=== PATIENT | male | born 1950 | race Caucasian/White ===

== ENCOUNTER 2023-01-07 13:43 | Emergency (ER) | payer OTHER, MEDICARE ==
[2023-01-07] MEDS ORDERED: Ketorolac 30 MG/ML SDV IM ONE (14:15)
[2023-01-07] MEDS ORDERED: Baclofen 10 MG Tab PO ONE (14:15)
== END 2023-01-07 16:17 | disposition home or self-care (01) ==
LOC: JP.ED 13:43
DX: M51.16 Intervertebral disc disorders with radiculopathy, lumbar region (principal); Z88.0 Allergy status to penicillin; Z79.899 Other long term (current) drug therapy; X50.0XXA Overexertion from strenuous movement or load, initial encounter
CPT/HCPCS: 96372; 99283; A9270-GY; J1885